=== PATIENT | female | born 2000 | race Caucasian/White ===

== ENCOUNTER 2021-03-03 20:27 | Emergency (ER) | payer OTHER ==
[2021-03-03 21:16] VITALS: BP 145/92; PULSE 73; RESP 15; TEMP 98.2
--- NOTE | 2021-03-03 22:48 | ED ---
General Adult HPI - General Chief complaint: Recheck/Abnormal Lab/Rx Stated complaint: Covid Test Time Seen by Provider: 03/03/21 22:25 Source: patient Mode of arrival: ambulatory - History of Present Illness Initial comments: 20-year-old female presents to the emergency room needing a coronavirus test. Patient came from [place] to go shopping in the . She needs a Covid test to return to [place]. Patient does not have any symptoms. No complaints.Patient has no other complaints at this time including shortness of breath, chest pain, abdominal pain, nausea or vomiting, headache, or visual changes. - Related Data Allergies Allergy/AdvReac Type Severity Reaction Status Date / Time No Known Allergies Allergy Verified 03/03/21 21:10 Review of Systems ROS Statement: Those systems with pertinent positive or pertinent negative responses have been documented in the HPI. ROS Other: All systems not noted in ROS Statement are negative. Past Medical History Past Medical History: No Reported History History of Any Multi-Drug Resistant Organisms: None Reported Past Surgical History: No Surgical Hx Reported Past Psychological History: No Psychological Hx Reported Smoking Status: Never smoker Past Alcohol Use History: None Reported Past Drug Use History: None Reported General Exam General appearance: alert, in no apparent distress Head exam: Present: atraumatic, normocephalic, normal inspection Eye exam: Present: normal appearance, PERRL, EOMI. Absent: scleral icterus, conjunctival injection, periorbital swelling ENT exam: Present: normal exam, mucous membranes moist Neck exam: Present: normal inspection, full ROM. Absent: tenderness, meningismus, lymphadenopathy Respiratory exam: Present: normal lung sounds bilaterally. Absent: respiratory distress, wheezes, rales, rhonchi, stridor Cardiovascular Exam: Present: regular rate, normal rhythm, normal heart sounds. Absent: systolic murmur, diastolic murmur, rubs, gallop, clicks Course Vital Signs 03/03/21 21:11 Temperature 98.2 F Pulse Rate 73 Respiratory 15 Rate Blood Pressure 145/92 O2 Sat by Pulse 98 Oximetry Medical Decision Making - Medical Decision Making Coronavirus test negative. Patient will be discharged home. - Lab Data Lab Results 03/03/21 Range/Units 21:23 Coronavirus (PCR) Not Detected (Not Detectd) Disposition Clinical Impression: Lab test negative for COVID-19 virus Narrative: Negative PCR Covid test Disposition: HOME SELF-CARE Condition: Good Instructions (If sedation given, give patient instructions): Coronavirus Disease 2019 (COVID-19) Is patient prescribed a controlled substance at d/c from ED?: No Referrals: Markos Murcia MD [REFERRING] - 1-2 days Time of Disposition: 22:48
== END 2021-03-03 22:55 | disposition home or self-care (01) ==
LOC: EC 20:27
DX: Z20.822 Contact with and (suspected) exposure to COVID-19 (principal)
CPT/HCPCS: 87635; 99282

== ENCOUNTER 2021-06-26 01:50 | Emergency (ER) | payer SELFPAY ==
[2021-06-26 02:05] VITALS: BP 129/82; PULSE 68; RESP 18; TEMP 98
--- NOTE | 2021-06-26 03:09 | ED ---
Recheck HPI - General Chief Complaint: Recheck/Abnormal Lab/Rx Stated Complaint: Covid Test Time Seen by Provider: 06/26/21 01:54 Source: patient, RN notes reviewed Mode of arrival: ambulatory Limitations: no limitations - History of Present Illness Initial Comments: Patient is a 20-year-old female presenting to the emergency department requesting Covid test for reentry back into [place]. She has no symptoms, no concerns. No recent fever or chills, no cough or congestion. She has no further complaints. Her vitals are stable upon arrival. - Related Data Allergies Allergy/AdvReac Type Severity Reaction Status Date / Time No Known Allergies Allergy Verified 03/03/21 21:10 Review of Systems ROS Statement: Those systems with pertinent positive or pertinent negative responses have been documented in the HPI. ROS Other: All systems not noted in ROS Statement are negative. Past Medical History Past Medical History: No Reported History History of Any Multi-Drug Resistant Organisms: None Reported Past Surgical History: No Surgical Hx Reported Past Psychological History: No Psychological Hx Reported Smoking Status: Never smoker Past Alcohol Use History: None Reported Past Drug Use History: None Reported General Exam - General Exam Comments Initial Comments: GENERAL: Patient is well-developed and well-nourished. Patient is nontoxic and in no acute distress. HEAD: Atraumatic, normocephalic. EYES: Pupils equal round and reactive to light, extraocular movements intact, sclera anicteric, conjunctiva are normal. Eyelids were unremarkable. ENT: Moist mucous membranes. NECK: Normal range of motion, supple without lymphadenopathy or JVD. LUNGS: Unlabored respirations. Breath sounds clear to auscultation bilaterally and equal. No wheezes rales or rhonchi. HEART: Regular rate and rhythm without murmurs, rubs or gallops. MUSCULOSKELETAL: Normal extremities with adequate strength and normal range of motion, no pitting or edema. No clubbing or cyanosis. SKIN: Warm, Dry, normal turgor, no rashes or lesions noted. Course Vital Signs 06/26/21 02:03 Temperature 98.0 F Pulse Rate 68 Respiratory 18 Rate Blood Pressure 129/82 O2 Sat by Pulse 99 Oximetry Medical Decision Making - Medical Decision Making Patient is a 20-year-old female here requesting a Covid test for reentry back in the [place]. She has no symptoms, exam is normal. Covid test is negative. She is stable for discharge. - Lab Data Lab Results 06/26/21 Range/Units 02:03 Coronavirus (PCR) Not Detected (Not Detectd) Disposition Clinical Impression: Lab test negative for COVID-19 virus Disposition: HOME SELF-CARE Condition: Stable Instructions (If sedation given, give patient instructions): Normal Exam (ED) Additional Instructions: Please return to the Emergency Department if symptoms worsen or any other concerns. Covid test is negative. Is patient prescribed a controlled substance at d/c from ED?: No Referrals: None,Stated [Primary Care Provider] - 1-2 days Time of Disposition: 03:19
== END 2021-06-26 03:52 | disposition home or self-care (01) ==
LOC: EC 01:50
DX: Z20.822 Contact with and (suspected) exposure to COVID-19 (principal)
CPT/HCPCS: 87635; 99282